=== PATIENT | male | born 2000 | race American Indian/Alaskan Native ===

== ENCOUNTER 2021-12-06 22:33 | Emergency (ER) | payer MEDICAID ==
[2021-12-06 23:02] VITALS: BP 118/72
[2021-12-06 23:35] LABS: Bilirubin,Urine NEG (Negative); Blood,Urine NEG (Negative); Color,Urine Yellow (Yellow); Protein,Urine <15 mg/dL mg/dL (Negative)
[2021-12-06 23:38] LABS: Mucus,Urine 2+ /HPF
== END 2021-12-07 02:05 | disposition left against medical advice (07) ==
LOC: ED 22:33
DX: R36.9 Urethral discharge, unspecified (principal); R30.0 Dysuria; Z53.21 Procedure and treatment not carried out due to patient leaving prior to being seen by health care provider
CPT/HCPCS: 81001